=== PATIENT | female | born 1975 | race Two or more races ===

== ENCOUNTER 2017-05-03 12:31 | Inpatient (IN) | payer OTHER ==
[2017-05-03 14:02] LABS: RUPTURE FETAL MEMBRANES POSITIVE (NEGATIVE)
[2017-05-03] MEDS ORDERED: MISOPROSTOL 200 MCG TAB PR ×2 (15:00→20:30)
[2017-05-03] MEDS ORDERED: OXYTOCIN 30 UNITS/LR 500 ML IV ×3 (15:00→20:30)
[2017-05-03] MEDS ORDERED: METHYLERGONOVINE 0.2 MG INJ IM ×2 (15:00→20:30)
[2017-05-03] MEDS ORDERED: BUTORPHANOL 2 MG INJ IV (15:00)
[2017-05-03] MEDS ORDERED: CARBOPROST 250 MCG INJ IM ×2 (15:00→20:30)
[2017-05-03 15:49] LABS: ADD MAN DIFF? NO
[2017-05-03 15:52] LABS: WHITE BLOOD COUNT 15.3 10^3/ul (4.8-10.8)
[2017-05-03 15:52] LABS: BASOPHILS % 0.1 % (0.0-2.0); EOSINOPHILS % 0.3 % (0.0-7.0); HEMATOCRIT 32.7 % (37.0-47.0); HEMOGLOBIN 10.8 g/dl (12.0-16.0); LYMPHOCYTES # 1.4 10^3/ul (0.8-2.9); LYMPHOCYTES % 8.9 % (15.0-51.0); MEAN CORPUSCULAR HEMOGLOBIN 30.3 pg (29.0-33.0); MEAN CORPUSCULAR VOLUME 91.9 fl (82.0-101.0); MEAN PLATELET VOLUME 9.5 fl (7.4-10.4); MONOCYTE # 0.9 10^3/ul (0.3-0.9); MONOCYTES % 6.1 % (0.0-11.0); NEUTROPHIL # 12.8 10^3/ul (1.6-7.5); NEUTROPHILS % 84.1 % (39.0-77.0); PLATELET COUNT 286 10^3/UL (140-415); RED BLOOD COUNT 3.56 10^6/ul (4.20-5.40); RED CELL DISTRIBUTION WIDTH 14.2 % (11.5-14.5)
[2017-05-03 16:08] LABS: INR 0.84; PROTIME 11.6 Sec (11.9-14.9); PT RATIO 0.9
[2017-05-03 16:09] LABS: PARTIAL THROMBOPLASTIN TIME 32.6 Sec (25.0-35.0)
[2017-05-03] MEDS: LACTATED RINGER'S 1,000 ML IV (16:57)
[2017-05-03] MEDS: OXYTOCIN 30 UNITS/LR 500 ML IV ×2 (17:26→20:08)
[2017-05-03] MEDS: AMPICILLIN 2 GM/NS (PMX) 100 ML IV (17:30)
[2017-05-03] MEDS: AMPICILLIN 1 GM/NS (PMX) 50 ML IV (19:00)
[2017-05-03] MEDS: BUTORPHANOL 2 MG INJ IV (19:23)
[2017-05-03] MEDS: LIDOCAINE 1% (MPF) 30 ML INJ INJ ×2 (19:27→19:39)
[2017-05-03] MEDS: LACTATED RINGER'S 1,000 ML IV* (20:23)
[2017-05-03] MEDS ORDERED: DIPHENHYDRAMINE 25 MG CAP PO (20:30)
[2017-05-03] MEDS ORDERED: ACETAMINOPHEN 325 MG TAB PO ×2 (20:30)
[2017-05-03] MEDS ORDERED: ONDANSETRON 4 MG TAB PO (20:30)
[2017-05-03] MEDS ORDERED: HYDROCODONE/APAP (5/325) TAB PO ×2 (20:30)
[2017-05-03] MEDS ORDERED: DIBUCAINE 1% 30 GM OINT PR (20:30)
[2017-05-03] MEDS ORDERED: ONDANSETRON 4 MG INJ IV (20:30)
[2017-05-03 21:09] LABS: HEPATITIS B SURFACE ANTIGEN NEGATIVE (NEGATIVE)
[2017-05-03] MEDS: LANOLIN 7 GM TUBE TOP (22:58)
[2017-05-03] MEDS: BENZOCAINE 20% 56 ML SPRAY TOP (22:58)
[2017-05-04] MEDS: IBUPROFEN 800 MG TAB PO ×5 (00:14→23:39)
[2017-05-04 08:20] LABS: ADD MAN DIFF? NO
[2017-05-04 08:26] LABS: WHITE BLOOD COUNT 16.3 10^3/ul (4.8-10.8)
[2017-05-04 08:26] LABS: BASOPHILS % 0.1 % (0.0-2.0); EOSINOPHILS % 0.2 % (0.0-7.0); HEMATOCRIT 25.5 % (37.0-47.0); HEMOGLOBIN 8.6 g/dl (12.0-16.0); LYMPHOCYTES # 1.2 10^3/ul (0.8-2.9); LYMPHOCYTES % 7.6 % (15.0-51.0); MEAN CORPUSCULAR HEMOGLOBIN 30.7 pg (29.0-33.0); MEAN CORPUSCULAR HGB CONC 33.7 g/dl (32.0-37.0); MEAN CORPUSCULAR VOLUME 91.1 fl (82.0-101.0); MEAN PLATELET VOLUME 9.5 fl (7.4-10.4); MONOCYTE # 1.1 10^3/ul (0.3-0.9); MONOCYTES % 6.7 % (0.0-11.0); NEUTROPHIL # 13.8 10^3/ul (1.6-7.5); NEUTROPHILS % 84.8 % (39.0-77.0); PLATELET COUNT 224 10^3/UL (140-415); RED CELL DISTRIBUTION WIDTH 14.3 % (11.5-14.5)
[2017-05-04] MEDS: MEASLES,MUMPS,RUBELLA VACCINE INJ SC* (09:14)
[2017-05-04] MEDS: SENNA/DOCUSATE NA (8.6MG/50MG) TAB PO (14:19)
[2017-05-04] MEDS: MAGNESIUM HYDROXIDE 30ML CUP PO (14:19)
[2017-05-04 17:30] LABS: RAPID PLASMA REAGIN NONREACTIVE (NR)
[2017-05-05] MEDS: IBUPROFEN 800 MG TAB PO ×2 (05:30→11:41)
[2017-05-05 08:43] LABS: ADD MAN DIFF? NO
[2017-05-05 08:55] LABS: WHITE BLOOD COUNT 14.8 10^3/ul (4.8-10.8)
[2017-05-05 08:55] LABS: BASOPHILS % 0.1 % (0.0-2.0); EOSINOPHILS # 0.1 10^3/ul (0.0-0.5); EOSINOPHILS % 0.6 % (0.0-7.0); HEMATOCRIT 27.5 % (37.0-47.0); HEMOGLOBIN 9.1 g/dl (12.0-16.0); LYMPHOCYTES # 1.6 10^3/ul (0.8-2.9); LYMPHOCYTES % 10.5 % (15.0-51.0); MEAN CORPUSCULAR HEMOGLOBIN 30.4 pg (29.0-33.0); MEAN CORPUSCULAR HGB CONC 33.1 g/dl (32.0-37.0); MEAN PLATELET VOLUME 9.2 fl (7.4-10.4); MONOCYTES % 6.9 % (0.0-11.0); NEUTROPHILS % 81.2 % (39.0-77.0); PLATELET COUNT 237 10^3/UL (140-415); RED BLOOD COUNT 2.99 10^6/ul (4.20-5.40); RED CELL DISTRIBUTION WIDTH 14.2 % (11.5-14.5)
[2017-05-05] MEDS: VARICELLA VACCINE LIVE/PF 1,350 UNIT/0.5 ML ML SC* (09:00)
[2017-05-05] MEDS: DIPHTH/TET/ACEL PERTUSS (ADULT) 0.5 ML VIAL IM* (09:00)
== END 2017-05-05 14:45 | disposition home or self-care (01) | DRG 775 ==
LOC: OBT 12:31 → PP1 05-04 10:41 → L-D 14:20 → PP1 22:05
PROVIDERS: Obstetrics & Gynecology
PROC: 10E0XZZ Delivery of Products of Conception, External Approach (ICD-10-PCS; principal; 2017-05-03)
PROC: 0DQR0ZZ Repair Anal Sphincter, Open Approach (ICD-10-PCS; 2017-05-03)
PROC: 0UQGXZZ Repair Vagina, External Approach (ICD-10-PCS; 2017-05-03)
PROC: 0W8NXZZ Division of Female Perineum, External Approach (ICD-10-PCS; 2017-05-03)
PROC: 4A1HXCZ Monitoring of Products of Conception, Cardiac Rate, External Approach (ICD-10-PCS; 2017-05-03)
DX: O62.3 Precipitate labor (principal); O70.20 Third degree perineal laceration during delivery, unspecified; O69.81X0 Labor and delivery complicated by cord around neck, without compression, not applicable or unspecified; Z37.0 Single live birth; Z3A.38 38 weeks gestation of pregnancy
CPT/HCPCS: 76818; 82962; 84112; 85025; 85610; 85730; 86592; 86900; 86901; 87340